=== PATIENT | male | born 1960 | race Caucasian/White ===

== ENCOUNTER 2017-01-01 09:18 | Emergency (ER) | payer OTHER ==
[2017-01-01 09:27] VITALS: RESP 16
[2017-01-01] MEDS ORDERED: IBUPROFEN 600 MG TAB PO STA (09:37)
[2017-01-01] MEDS ORDERED: ACETAMINOPHEN TAB 500 MG TAB PO STA (09:37)
--- NOTE | 2017-01-01 10:15 | ED ---
General Adult HPI - General Chief complaint: Fever Stated complaint: chills/shaking, stopped taking med 2 days ago Source: patient, RN notes reviewed Mode of arrival: wheelchair Limitations: no limitations - History of Present Illness Initial comments: Patient is a 56-year-old male who presents emergency room today with a chief complaint of increased bodyaches with chills and haven't changed. He states that symptoms started this morning on his way to work when he was driving. He does admit to some low back pain. Admits to generalized body aches. States she 's unaware that he had a fever. Doesn't some rhinorrhea. Plans for symptoms at this time. Patient denies any recent shortness of breath, chest pain, back pain, abdominal pain, nausea or vomiting, numbness or tingling, dysuria or hematuria, constipation or diarrhea, headaches or visual changes, or any other complaints. - Related Data Home Medications Medication Instructions Recorded Confirmed Pantoprazole Sodium [Protonix] 40 mg PO DAILY 01/01/17 01/01/17 Ranitidine HCl [Zantac] 75 mg PO TID 01/01/17 01/01/17 Allergies Allergy/AdvReac Type Severity Reaction Status Date / Time No Known Allergies Allergy Verified 01/01/17 09:55 Review of Systems ROS Statement: Those systems with pertinent positive or pertinent negative responses have been documented in the HPI. ROS Other: All systems not noted in ROS Statement are negative. Past Medical History Additional Past Medical History / Comment(s): HAS UMBILICAL HERNIA. History of Any Multi-Drug Resistant Organisms: None Reported Past Surgical History: Orthopedic Surgery Additional Past Surgical History / Comment(s): EAR SURGERIES. RT SHOULDER SCOPE SURG. Past Anesthesia/Blood Transfusion Reactions: No Reported Reaction Past Psychological History: No Psychological Hx Reported Smoking Status: Current every day smoker Past Alcohol Use History: None Reported Additional Past Alcohol Use History / Comment(s): SMOKED SINCE 1983, 1 PPD. Past Drug Use History: Marijuana Additional Drug Use History / Comment(s): MARIJUANA DAILY - Past Family History Mother Family Medical History: No Reported History General Exam - General Exam Comments Initial Comments: General: The patient is awake and alert, in no distress, and does not appear acutely ill. Eye: Pupils are equal, round and reactive to light, extra-ocular movements are intact. No nystagmus. There is normal conjunctiva bilaterally. No signs of icterus. Ears, nose, mouth and throat: There are moist mucous membranes and no oral lesions. Neck: The neck is supple, there is no tenderness or JVD. No meningismal signs. Cardiovascular: There is a regular rate and rhythm. No murmur, rub or gallop is appreciated. Respiratory: Lungs are clear to auscultation, respirations are non-labored, breath sounds are equal. No wheezes, stridor, rales, or rhonchi. Gastrointestinal: Soft, non-distended, non-tender abdomen without masses or organomegaly noted. There is no rebound or guarding present. No CVA tenderness. Bowel sounds are unremarkable. Musculoskeletal: Normal ROM, no tenderness. Strength 5/5. Sensation intact. Pulses equal bilaterally 2+. Neurological: A&O x 3. CN II-XII intact, There are no obvious motor or sensory deficits. Coordination appears grossly intact. Speech is normal. Skin: Skin is warm and dry and no rashes or lesions are noted. Psychiatric: Cooperative, appropriate mood & affect, normal judgment. Limitations: no limitations Course Vital Signs 01/01/17 01/01/17 09:24 11:05 Temperature 102.1 F H 100.1 F H Pulse Rate 89 80 Respiratory 16 16 Rate Blood Pressure 118/64 101/59 O2 Sat by Pulse 96 93 L Oximetry Medical Decision Making - Medical Decision Making Patient's chest x-ray negative. Urinalysis negative. Patient felt better after Tylenol Motrin given here in the emergency room. Fever improved currently 100.7F chicken and myself in the room. Strength patient has no other complaints. At this time advised possibly viral illness. Advised to continue Tylenol Motrin for fever and body aches. Advised return if any symptoms increase or worsen or for any other concerns. Patient states understanding and is in agreement with this plan. - Lab Data Lab Results 01/01/17 01/01/17 Range/Units 09:41 09:45 Urine Color Yellow Urine Appearance Clear (Clear) Urine pH 8.0 (5.0-8.0) Ur Specific [place] 1.014 (1.001-1.035) Urine Protein Negative (Negative) Urine Glucose (UA) Negative (Negative) Urine Ketones Trace H (Negative) Urine Blood Negative (Negative) Urine Nitrite Negative (Negative) Urine Bilirubin Negative (Negative) Urine Urobilinogen 2.0 (<2.0) mg/dL Ur Leukocyte Esterase Trace H (Negative) Urine RBC 4 (0-5) /hpf Urine WBC <1 (0-5) /hpf Ur Squamous Epith Cells <1 (0-4) /hpf Influenza Type A RNA Not Detected (Not Detectd) Influenza Type B (PCR) Not Detected (Not Detectd) Disposition Clinical Impression: Fever Disposition: HOME SELF-CARE Condition: Good Instructions: Upper Respiratory Infection (ED) Additional Instructions: Please use medication as discussed. Please follow-up with family doctor in the next 2 days of symptoms have not improved. Please return to emergency room if the symptoms increase or worsen or for any other concerns. Referrals: Marlen Dutton DO [Primary Care Provider] - 1-2 days Time of Disposition: 11:10
[2017-01-01 10:29] LABS: Appearance,Urine Clear (Clear); Bilirubin,Urine Negative (Negative); Glucose,Urine (UA) Negative (Negative); Ketones,Urine Trace (Negative); Leukocyte Esterase,Urine Trace (Negative); Nitrite,Urine Negative (Negative); Particle Count 609; Protein,Urine Negative (Negative); RBC,Urine 4 /hpf (0-5); Specific Gravity,Urine 1.014 (1.001-1.035); Squamous Epithelial Cell,Urine <1 /hpf (0-4); UA Billing (MACRO vs. MICRO) MICRO; WBC,Urine <1 /hpf (0-5)
--- NOTE | 2017-01-01 10:41 | XR ---
EXAMINATION TYPE: XR chest 2V DATE OF EXAM: 01/01/2017 10:37 AM COMPARISON: NONE TECHNIQUE: PA and lateral views submitted. HISTORY: Cough FINDINGS: The lungs are clear and there is no pneumothorax, pleural effusion, or focal pneumonia. Mild hypert rophic change of the spine noted. Subpleural nodularity noted by previous CT scan is not well-seen by standard x-ray. No overt failure. IMPRESSION: 1. No acute process.
[2017-01-01 11:06] VITALS: BP 101/59; PULSE 80; TEMP 100.1
== END 2017-01-01 11:22 | disposition home or self-care (01) ==
LOC: EC 09:18
DX: R50.9 Fever, unspecified (principal); M54.5 Low back pain; F17.200 Nicotine dependence, unspecified, uncomplicated; Z79.899 Other long term (current) drug therapy
CPT/HCPCS: 71020; 81001; 87502; 99283

== ENCOUNTER 2018-10-09 08:16 | Day surgery (SDC) | payer OTHER ==
[2018-10-08 08:30] VITALS: BMI 23.7
[~2018-10-09 08:16] MED LIST: LACTATED RINGERS 1,000 ML IV SCH; LIDOCAINE 1% 20 ML VIAL (10MG/ML) FOR IV START INTRADERMA PRN
[2018-10-09 09:04] VITALS: TEMP 98.5
[2018-10-09] MEDS ORDERED: GLUCAGON 1 MG/ML VIAL ONE (09:04)
[2018-10-09] MEDS ORDERED: PROPOFOL 10 MG/ML 20 ML VIAL IV ONE (09:04)
[2018-10-09] MEDS ORDERED: LIDOCAINE 1% 20 ML VIAL (10MG/ML) FOR IV START INTRADERMA ONE (09:04)
--- NOTE | 2018-10-09 09:16 | P.GSHP ---
History of Present Illness H&P Date: 10/09/18 Chief Complaint: GI bleed This a 57-year-old male who presents today for colonoscopy. Patient's noticed some blood in his stool. Past Medical History Additional Past Medical History / Comment(s): blood in stool, History of Any Multi-Drug Resistant Organisms: None Reported Past Surgical History: Ear Surgery, Hernia Repair, Orthopedic Surgery, Tonsillectomy Additional Past Surgical History / Comment(s): RT SHOULDER arthroscopy, Past Anesthesia/Blood Transfusion Reactions: Previous Problems w/ Anesthesia Additional Past Anesthesia/Blood Transfusion Reaction / Comment(s): "hard time bringing me out-my blood pressure spiked" during hernia surgery Smoking Status: Current every day smoker - Past Family History Mother Family Medical History: No Reported History Medications and Allergies Home Medications Medication Instructions Recorded Confirmed Type No Known Home Medications 10/08/18 10/09/18 History Allergies Allergy/AdvReac Type Severity Reaction Status Date / Time No Known Allergies Allergy Verified 10/09/18 08:36 Surgical - Exam Vital Signs Temp Pulse Resp BP Pulse Ox 98.5 F 54 L 16 127/75 94 L 10/09/18 08:48 10/09/18 08:48 10/09/18 08:48 10/09/18 08:48 10/09/18 08:48 - General well developed, well nourished, no distress - Eyes PERRL - ENT normal pinna - Neck no masses - Respiratory normal expansion - Cardiovascular Rhythm: regular - Abdomen Abdomen: soft, non tender Assessment and Plan Assessment: GI bleed. We'll perform colonoscopy.
--- NOTE | 2018-10-09 09:36 | P.OP ---
Date of Procedure: 10/09/18 Preoperative Diagnosis: Rectal bleeding Postoperative Diagnosis: Rectal mass suspicious for rectal cancer Diverticulosis Procedure(s) Performed: Colonoscopy Anesthesia: MAC Surgeon: Kingsley Fuentes Pathology: other (Rectal biopsy) Condition: stable Disposition: PACU Description of Procedure: The patient's placed on the endoscopy table in the lateral position. He received IV sedation.` Digital rectal exam was performed which revealed no abnormalities. The flexible colonoscope was then placed patient anus and passed throughout the entire colon. The ileocecal valve was. The cecum, ascending and transverse colon appeared normal. In the descending and sigmoid colon there is mild diverticular changes. Scope was then brought back to the rectosigmoid junctionat the 20 cm sharon there was a friable mass which was suspicious for rectal cancer. The mass was biopsied. The mass was friable bleeding. The scope was then withdrawn. The remainder the rectum appeared normal. It was presumed that the bleeding was due to the mass.
[2018-10-09 09:51] VITALS: BP 106/66; PULSE 51; RESP 16
== END 2018-10-09 10:21 | disposition home or self-care (01) ==
LOC: ORWHC2ENDO 08:16
PROVIDERS: ATTEND Surgery
DX: C20 Malignant neoplasm of rectum (principal); K57.30 Diverticulosis of large intestine without perforation or abscess without bleeding; F17.210 Nicotine dependence, cigarettes, uncomplicated
CPT/HCPCS: 88305; 45380; J1610; J2704; 45385

== ENCOUNTER 2024-08-30 14:52 | Emergency (ER) | payer OTHER ==
--- NOTE | 2024-08-30 15:32 | ED ---
Abdominal Pain HPI - General Chief Complaint: Abdominal Pain Stated Complaint: left side/back pain Time Seen by Provider: 08/30/24 15:30 Source: patient, family, RN notes reviewed Mode of arrival: ambulatory Limitations: no limitations - History of Present Illness Initial Comments: 63-year-old male with history of colorectal cancer with subsequent colon re section presenting to the emergency department with complaint of left flank pain. Patient states that she developed left flank pain this morning after breakfast described as a stabbing sensation that lasted for 1 to 2 hours. States that pain resolved however returned later in the day with worsening sensation and believe that the pain moved lower down his back described as a stabbing sensation with severe nausea. States that on the car ride to the emergency department pain has resolved. He denies abdominal pain, hematuria, dysuria, fevers, chills, chest pain, palpitations, dizziness lightheadedness. Denies hematochezia, melena. Last bowel movement yesterday morning. Patient is still passing gas. - Related Data Home Medications Medication Instructions Recorded Confirmed No Known Home Medications 10/08/18 10/09/18 Allergies Allergy/AdvReac Type Severity Reaction Status Date / Time Penicillins Allergy Rash/Hives Verified 08/30/24 15:11 Review of Systems ROS Statement: Those systems with pertinent positive or pertinent negative responses have been documented in the HPI. ROS Other: All systems not noted in ROS Statement are negative. Past Medical History Past Medical History: Cancer Additional Past Medical History / Comment(s): blood in stool, History of Any Multi-Drug Resistant Organisms: None Reported Past Surgical History: Bowel Resection, Ear Surgery, Hernia Repair, Orthopedic Surgery, Tonsillectomy Additional Past Surgical History / Comment(s): RT SHOULDER arthroscopy, Past Anesthesia/Blood Transfusion Reactions: Previous Problems w/ Anesthesia Additional Past Anesthesia/Blood Transfusion Reaction / Comment(s): "hard time bringing me out-my blood pressure spiked" during hernia surgery Past Psychological History: No Psychological Hx Reported Past Alcohol Use History: None Reported Past Drug Use History: Marijuana - Past Family History Mother Family Medical History: No Reported History General Exam Limitations: no limitations Neck exam: Present: normal inspection. Absent: tenderness, meningismus, lymphadenopathy Respiratory exam: Present: normal lung sounds bilaterally. Absent: respiratory distress, wheezes, rales, rhonchi, stridor Cardiovascular Exam: Present: regular rate, normal rhythm, normal heart sounds. Absent: systolic murmur, diastolic murmur, rubs, gallop, clicks GI/Abdominal exam: Present: soft, normal bowel sounds. Absent: distended, tenderness, guarding, rebound, rigid Back exam: Present: normal inspection. Absent: CVA tenderness (R), CVA tenderness (L) Neurological exam: Present: alert, oriented X3, CN II-XII intact Skin exam: Present: warm, dry, intact, normal color. Absent: rash Course Vital Signs 08/30/24 15:08 Temperature 98.5 F Pulse Rate 59 L Respiratory 20 Rate Blood Pressure 139/77 O2 Sat by Pulse 98 Oximetry Medical Decision Making - Medical Decision Making Was pt. sent in by a medical professional or institution (, PA, STENCILER, urgent care, hospital, or [facility]...) When possible be specific @ -No Did you speak to anyone other than the patient for history (EMS, parent, family, police, friend...)? What history was obtained from this source @ -No Did you review nursing and triage notes (agree or disagree)? Why? @ -I reviewed and agree with nursing and triage notes Were old charts reviewed (outside hosp., previous admission, EMS record, old EKG, old radiological studies, urgent care reports/EKG's, [facility] records)? Report findings @ -No old charts were reviewed Differential Diagnosis (chest pain, altered mental status, abdominal pain women, abdominal pain men, vaginal bleeding, weakness, fever, dyspnea, syncope, headache, dizziness, GI bleed, back pain, seizure, CVA, palpatations, mental health, musculoskeletal)? @ -Differential Back Pain: Strain, zoster, cauda equina syndrome, epidural abscess, vertebral osteomyelitis, discitis, fracture, subluxation, disc herniation, DJD, spinal stenosis, dissection, AAA, pancreatitis, peptic ulcer disease, pyelonephritis, kidney stone, this is not meant to be an all-inclusive list. EKG interpreted by me (3pts min.). @ -None X-rays interpreted by me (1pt min.). @ -None done CT interpreted by me (1pt min.). @ -CT the abdomen pelvis without contrast reveals no definitive process to account for pain with no evidence of obstructive uropathy or renal stone with a large amount of stool throughout the colon. Gallbladder wall calcification possibility of adherent gallstone versus early porcelain gallbladder with a normal appendix U/S interpreted by me (1pt. min.). @ -None done What testing was considered but not performed or refused? (CT, X-rays, U/S, labs)? Why? @ -None What meds were considered but not given or refused? Why? @ -None Did you discuss the management of the patient with other professionals (pro fessionals i.e. , PA, STENCILER, lab, RT, psych nurse, social welfare research worker, web weaver, teacher, chief strategy officer, porter sample case)? Give summary @ -No Was smoking cessation discussed for >3mins.? @ -No Was critical care preformed (if so, how long)? @ -No Were there social determinants of health that impacted care today? How? (Homelessness, low income, unemployed, alcoholism, drug addiction, transportation, low edu. Level, literacy, decrease access to med. care, retirement, rehab)? @ -No Was there de-escalation of care discussed even if they declined (Discuss DNR or withdrawal of care, Hospice)? DNR status @ -No What co-morbidities impacted this encounter? (DM, HTN, Smoking, COPD, CAD, Cancer, CVA, ARF, Chemo, Hep., AIDS, mental health diagnosis, sleep apnea, morbid obesity)? @ -None Was patient admitted / discharged? Hospital course, mention meds given and route, prescriptions, significant lab abnormalities, going to OR and other pertinent info. @ -Discharge. 63-year-old male presenting with left flank pain. My evaluation patient is denying flank pain and there is no CVA tenderness the left side. Patient undergo CT imaging and urinalysis. Urinalysis remarkable for Small blood with no signs of infection. CT pelvis large amount of stool throughout colon. On reevaluation, patient denies recurrent flank pain states that he has not had pain while in the emergency department. Additionally, states that he has had a large bowel movement well being in the emergency department. Recommend that patient follows up with PCP outpatient for further evaluation of incidental mild hematuria and recommend use of MiraLAX to minimize stool burden. Constipation. Discussed with Dr. Garcia Undiagnosed new problem with uncertain prognosis? @ -No Drug Therapy requiring intensive monitoring for toxicity (Heparin, Nitro, Insulin, Cardizem)? @ -No Were any procedures done? @ -No Diagnosis/symptom? @ -flank pain, constipation Acute, or Chronic, or Acute on Chronic? @ -acute Uncomplicated (without systemic symptoms) or Complicated (systemic symptoms)? @ -uncomplicated Side effects of treatment? @ -No Exacerbation, Progression, or Severe Exacerbation? @ -No Poses a threat to life or bodily function? How? (Chest pain, [place], [place], pneumonia, PE, COPD, DKA, ARF, appy, cholecystitis, CVA, Diverticulitis, Homicidal, Suicidal, threat to staff... and all critical care pts) @ -No - Lab Data Lab Results 08/30/24 Range/Units 16:14 Urine Color Yellow Urine Appearance Clear (Clear) Urine pH 6.0 (5.0-8.0) Ur Specific [place] 1.015 (1.001-1.035) Urine Protein Negative (Negative) Urine Glucose (UA) Negative (Negative) Urine Ketones Negative (Negative) Urine Blood Small H (Negative) Urine Nitrite Negative (Negative) Urine Bilirubin Negative (Negative) Urine Urobilinogen <2.0 (<2.0) mg/dL Ur Leukocyte Esterase Negative (Negative) Urine RBC 2 (0-5) /hpf Urine WBC <1 (0-5) /hpf Urine Mucus Occasional H (None) /hpf Disposition Clinical Impression: Flank pain, Constipation Disposition: HOME SELF-CARE Condition: Good Instructions (If sedation given, give patient instructions): Flank Pain (ED) Additional Instructions: Please return to the Emergency Department if symptoms worsen or any other concerns. As discussed, attempt to increase hydration and use MiraLAX to he constipation. Is patient prescribed a controlled substance at d/c from ED?: No Referrals: aMrlen Dutton DO [Primary Care Provider] - 1-2 days Time of Disposition: 16:47
--- NOTE | 2024-08-30 16:19 | CT ---
EXAMINATION TYPE: CT abdomen pelvis wo con DATE OF EXAM: 08/30/2024 3:53 PM COMPARISON: None CLINICAL INDICATION: Male, 63 years old with history of L flank pain; Left side flank pain. TECHNIQUE: Axial CT abdomen pelvis wo con;Sagittal and coronal reformats were created on a separate workstation. Contrast used: mL of , (none if empty) Oral contrast used: without Oral Contrast (none if empty) CT DLP: 587 mGycm, Automated exposure control for dose reduction was used. FINDINGS: LOWER CHEST: Unremarkable ABDOMEN LIVER: Unremarkable GALLBLADDER AND BILE DUCTS: Single focus of cavitation possibly adherent up stone versus early percen t gallbladder. PANCREAS: Unremarkable. SPLEEN: Unremarkable. ADRENAL GLANDS: Unremarkable. KIDNEYS AND URETERS: No evidence of hydronephrosis or renal calculus. The ureters are unremarkable. PELVIS BLADDER: No evidence for wall thickening or mass given limitations of exam. REPRODUCTIVE: Unremarkable. ABDOMEN & PELVIS STOMACH AND BOWEL: Third portion duodenal diverticulum. No evidence of bowel obstruction. Normal-appe aring appendix. Postsurgical changes to the rectosigmoid junction and terminal ileum with small bowel feces present. Large stool burden throughout the colon. PERITONEUM/RETROPERITONEUM: No evidence of pneumoperitoneum or free fluid. VASCULATURE: No evidence of aortic aneurysm. MUSCULOSKELETAL: No acute osseous abnormalities LYMPH NODES: No gross evidence for lymphadenopathy. SOFT TISSUE/ABDOMINAL WALL: Left fat-containing inguinal hernia. IMPRESSION: 1. No definitive acute process to account for patient's pain. No evidence for obstructive uropathy o r renal contrast. Post surgical changes to the bowel without evidence for obstruction. There is a lar ge amount stool throughout the colon. 2. Severe atherosclerosis of the arteries. 3. Color wall calcification which could represent adherent gallstone versus early porcelain gallblad henry. 4. The appendix is normal. [facility], , 08/30/2024 4:16 PM
[2024-08-30 16:35] LABS: Appearance,Urine Clear (Clear); Bilirubin,Urine Negative (Negative); Blood,Urine Small (Negative); Color,Urine Yellow; Glucose,Urine (UA) Negative (Negative); Ketones,Urine Negative (Negative); Leukocyte Esterase,Urine Negative (Negative); Mucus,Urine Occasional /hpf; Nitrite,Urine Negative (Negative); Protein,Urine Negative (Negative); RBC,Urine 2 /hpf (0-5); Specific Gravity,Urine 1.015 (1.001-1.035); Urobilinogen,Urine <2.0 mg/dL (<2.0); WBC,Urine <1 /hpf (0-5)
[2024-08-30 17:06] VITALS: BP 137/87; PULSE 60; RESP 18; TEMP 98
== END 2024-08-30 17:06 | disposition home or self-care (01) ==
LOC: EC 14:52
DX: K59.00 Constipation, unspecified (principal); I70.209 Unspecified atherosclerosis of native arteries of extremities, unspecified extremity; Z88.0 Allergy status to penicillin
CPT/HCPCS: 74176; 81001; 99284